=== PATIENT | male | born 1940 | race Caucasian/White ===

== ENCOUNTER 2017-10-19 14:15 | Inpatient (IN) | payer MEDICARE ==
[~2017-10-19] VITALS: Ht 170.2 cm; Wt 93.2 kg
--- NOTE | ~2017-10-19 | CN ---
PATIENT NAME:KEN RAMIREZ MEDICAL RECORD: [id number] : 36 LOCATION:[id number] ADMIT DATE: 10/19/17 ACCOUNT: [id number] CONSULTING PHYSICIAN: KATRINA CONSTANTINO MD REFERRING PHYSICIAN: SVETA CARTWRIGHT MD DATE OF CONSULTATION: 10/25/2017 IDENTIFYING DATA: The patient is 77 years old and he is admitted to the hospital on a voluntary basis. CHIEF COMPLAINT: None. HISTORY OF PRESENT ILLNESS: The patient has a history of schizophrenia, had some suicidal thoughts and was admitted to a [facility] unit in [place], [place]. He subsequently developed symptoms of cholecystitis with leukocytosis and was transferred here for evaluation. The patient was found to have splenomegaly and biliary dyskinesia. He is apparently medically stable at this point and I am being asked what should be done with him next. The patient continues to report that he is "not right in the head." He displays a depressed mood, but denies current thoughts of harming himself or others. ASSESSMENT: 1. Schizophrenia. 2. Major depression. PLAN: At this time, I would recommend the patient be transferred back to the [facility] facility from which he was accepted. He is clearly distressed psychologically and he was brought here before his treatment at the other facility was finished. Returning him there would be a reasonable step, although he currently denies psychotic symptoms and thoughts of self-harm. It would be up to the psychiatrist at [facility] to determine if he has completed his treatment and that he is appropriate to be transitioned to an outpatient setting. TRANSINT:[id number] Voice Confirmation ID: [id number] DOCUMENT ID: [id number] KATRINA CONSTANTINO MD at 1354 CC: [id number] DICTATION DATE: 10/25/17 1140 TECHNICAL SUPERVISOR: 10/25/17 1325 DIS IN 10/25/17 [address] [place] [address]
[2017-10-19] MEDS ORDERED: GLUCOTROL XL 1010 MG PO (17:59)
[2017-10-19] MEDS ORDERED: EFFEXOR75 MG PO (18:00)
[2017-10-19] MEDS ORDERED: ABILIFY10 MG PO (18:01)
[2017-10-19] MEDS ORDERED: REMERON45 MG PO (18:02)
[2017-10-19] MEDS ORDERED: ATROVENT 0.02%2.5 ML UPD (18:04)
[2017-10-19] MEDS ORDERED: PROVENTIL/2.5 MG/3 M INH (18:06)
[2017-10-19] MEDS ORDERED: CARAFATE1 G PO (18:08)
[2017-10-19] MEDS ORDERED: TRICOR145 MG PO (18:09)
[2017-10-19] MEDS ORDERED: PAMELOR 25 MG C25 MG PO (18:09)
[2017-10-19] MEDS ORDERED: NIASPAN500 MG PO (18:10)
[2017-10-19] MEDS ORDERED: ZESTRIL10 MG PO (18:11)
[2017-10-19] MEDS ORDERED: SALINE FLUSH10 ML IV (18:11)
[2017-10-19] MEDS ORDERED: IMODIUM2 MG PO (18:15)
[2017-10-19] MEDS ORDERED: GABAPENTIN100 MG PO (18:15)
[2017-10-19] MEDS ORDERED: ATIVAN1 MG (18:16)
[2017-10-19] MEDS ORDERED: OMEPRAZOLE40 MG PO (18:17)
[2017-10-19] MEDS ORDERED: SYNTHROID75 MCG PO (18:25)
[2017-10-19] MEDS ORDERED: NOVOLIN R100 U/ML (18:26)
[2017-10-19 18:49] VITALS: BP 156/63; BMI 30.9
[2017-10-19 20:48] VITALS: BP 152/71
[2017-10-19 23:59] VITALS: BP 122/59
[2017-10-20] VITALS (13 sets, daily range): BP systolic 120–141; BP diastolic 68–85; Ht 170.2 cm; Wt 93.2 kg
[2017-10-20 06:28] LABS: ANION GAP 10.7 mmol/L (8-16); BILIRUBIN - TOTAL 1.07 mg/dL (0.2-1.3); CALCIUM 8.6 mg/dL (8.5-10.1); CARBON DIOXIDE 27.6 mmol/L (21.0-32.0); CREATININE - SERUM 1.9 mg/dL (0.6-1.3); POTASSIUM - SERUM 4.3 mmol/L (3.5-5.1); PROTEIN - SERUM 5.8 g/dL (6.4-8.2)
[2017-10-20 07:02] LABS: HEMATOCRIT 30.8 % (42.0-54.0); HEMOGLOBIN 9.7 g/dL (13.5-17.5); MCHC 31.5 g/dL (31.0-37.0); PLATELET COUNT 127 10x3/uL (130-400); RBC 3.46 10x6/uL (4.20-6.10); RDW 20.2 % (11.5-14.5); WBC 13.9 10x3/uL (4.8-10.8)
[2017-10-20 07:50] LABS: EOSINOPHILS 8 % (0-7); LYMPHOCYTES 18 % (15-50); MONOCYTES 13 % (2-11); NEUTROPHILS 50 % (40-80)
[2017-10-20 07:51] LABS: PLATELET MORPHOLOGY GIANT PLTS PRESENT; POLYCHROMASIA 2+
[2017-10-20 07:52] LABS: PLATELET ESTIMATE NORMAL; TOXIC GRANULATION OCC
[2017-10-20 07:53] LABS: ACANTHOCYTES OCC
[2017-10-21] VITALS (18 sets, daily range): BP systolic 93–132; BP diastolic 53–83
[2017-10-21 05:57] LABS: APTT 39.7 SECONDS (22.8-39.4); INR 1.51 (0.85-1.17); PROTIME 17.8 SECONDS (11.6-15.0)
[2017-10-21 06:05] LABS: MCH 28.7 pg (26.0-34.0); MCHC 32.3 g/dL (31.0-37.0); MCV 89.1 fL (80.0-100.0); PLATELET COUNT 129 10x3/uL (130-400); RBC 3.48 10x6/uL (4.20-6.10); RDW 20.2 % (11.5-14.5); WBC 14.9 10x3/uL (4.8-10.8)
[2017-10-21 07:02] LABS: ANION GAP 11.3 mmol/L (8-16); BILIRUBIN - TOTAL 1.1 mg/dL (0.2-1.3); CALCIUM 8.4 mg/dL (8.5-10.1); CARBON DIOXIDE 26.7 mmol/L (21.0-32.0); CREATININE - SERUM 1.9 mg/dL (0.6-1.3); PROTEIN - SERUM 5.7 g/dL (6.4-8.2)
[2017-10-21 08:24] LABS: CRENATED CELLS 1+; EOSINOPHILS 9 % (0-7); LYMPHOCYTES 22 % (15-50); MONOCYTES 2 % (2-11); NEUTROPHILS 44 % (40-80); POLYCHROMASIA 2+
[2017-10-21 08:25] LABS: BURR CELLS 1+; SMUDGE CELLS 1+; TOXIC GRANULATION OCC; VACUOLES OCC
[2017-10-21 08:26] LABS: PLATELET ESTIMATE NORMAL; PLATELET MORPHOLOGY GIANT PLTS PRESENT
[2017-10-22] VITALS (28 sets, daily range): BP systolic 90–120; BP diastolic 48–82
[2017-10-22 04:34] LABS: HEMATOCRIT 28.9 % (42.0-54.0); HEMOGLOBIN 9.5 g/dL (13.5-17.5); LYMPHOCYTES 25.5 % (15-50); MCH 28.7 pg (26.0-34.0); MCHC 32.9 g/dL (31.0-37.0); MCV 87.3 fL (80.0-100.0); MEAN PLATELET VOLUME 10.2 fL (7.4-10.4); NEUTROPHILS 66.5 % (40-80); PLATELET COUNT 145 10x3/uL (130-400); RBC 3.31 10x6/uL (4.20-6.10); RDW 20.7 % (11.5-14.5); WBC 16.4 10x3/uL (4.8-10.8)
[2017-10-22 04:50] LABS: ALBUMIN 2.9 g/dL (3.4-5.0); ANION GAP 8.9 mmol/L (8-16); BILIRUBIN - TOTAL 1.02 mg/dL (0.2-1.3); CALCIUM 8.3 mg/dL (8.5-10.1); CARBON DIOXIDE 29.1 mmol/L (21.0-32.0); CREATININE - SERUM 1.9 mg/dL (0.6-1.3); PROTEIN - SERUM 5.6 g/dL (6.4-8.2)
[2017-10-23] VITALS (22 sets, daily range): BP systolic 92–134; BP diastolic 38–87
[2017-10-23 03:38] LABS: HEMATOCRIT 30.1 % (42.0-54.0); HEMOGLOBIN 9.7 g/dL (13.5-17.5); MCH 28.4 pg (26.0-34.0); MCHC 32.2 g/dL (31.0-37.0); MCV 88.3 fL (80.0-100.0); PLATELET COUNT 128 10x3/uL (130-400); RBC 3.41 10x6/uL (4.20-6.10); RDW 20.1 % (11.5-14.5); WBC 18.8 10x3/uL (4.8-10.8)
[2017-10-23 03:58] LABS: ALBUMIN 2.9 g/dL (3.4-5.0); ANION GAP 10.2 mmol/L (8-16); BILIRUBIN - TOTAL 0.93 mg/dL (0.2-1.3); CALCIUM 8.4 mg/dL (8.5-10.1); CREATININE - SERUM 2.2 mg/dL (0.6-1.3); POTASSIUM - SERUM 4.2 mmol/L (3.5-5.1); PROTEIN - SERUM 5.8 g/dL (6.4-8.2)
[2017-10-23 04:08] LABS: BASOPHILS 1 % (0-2); EOSINOPHILS 8 % (0-7); LYMPHOCYTES 15 % (15-50); MONOCYTES 13 % (2-11); NEUTROPHILS 46 % (40-80); TOXIC GRANULATION OCC
[2017-10-23 04:09] LABS: ACANTHOCYTES OCC; POLYCHROMASIA 2+
[2017-10-23 04:10] LABS: PLATELET ESTIMATE DECREASED; PLATELET MORPHOLOGY GIANT PLTS PRESENT
[2017-10-24] VITALS (23 sets, daily range): BP systolic 113–139; BP diastolic 62–91
[2017-10-24 02:40] LABS: HEMATOCRIT 29.1 % (42.0-54.0); HEMOGLOBIN 9.4 g/dL (13.5-17.5); MCH 28.5 pg (26.0-34.0); MCHC 32.3 g/dL (31.0-37.0); MCV 88.2 fL (80.0-100.0); PLATELET COUNT 141 10x3/uL (130-400); RDW 20.2 % (11.5-14.5); WBC 17.6 10x3/uL (4.8-10.8)
[2017-10-24 02:51] LABS: ALBUMIN 2.9 g/dL (3.4-5.0); BILIRUBIN - TOTAL 0.95 mg/dL (0.2-1.3); CALCIUM 8.4 mg/dL (8.5-10.1); CARBON DIOXIDE 29.1 mmol/L (21.0-32.0); CREATININE - SERUM 2.3 mg/dL (0.6-1.3); POTASSIUM - SERUM 4.1 mmol/L (3.5-5.1); PROTEIN - SERUM 5.7 g/dL (6.4-8.2)
[2017-10-24 03:09] LABS: BASOPHILS 4 % (0-2); EOSINOPHILS 5 % (0-7); LYMPHOCYTES 21 % (15-50); MONOCYTES 1 % (2-11); NEUTROPHILS 52 % (40-80); PLATELET ESTIMATE NORMAL; PLATELET MORPHOLOGY GIANT PLTS PRESENT
[2017-10-25] VITALS (17 sets, daily range): BP systolic 108–137; BP diastolic 56–77
== END 2017-10-25 20:36 | DRG 803 ==
LOC: D.MS 14:15 → D.ICU 16:44
PROVIDERS: General Practice; Internal Medicine Hematology & Oncology; Internal Medicine Nephrology; Radiology Diagnostic Radiology
PROC: 07DR3ZX Extraction of Iliac Bone Marrow, Percutaneous Approach, Diagnostic (ICD-10-PCS; 2017-10-22)
PROC: 0Q933ZX Drainage of Left Pelvic Bone, Percutaneous Approach, Diagnostic (ICD-10-PCS; principal; 2017-10-22 09:30)
DX: D72.829 Elevated white blood cell count, unspecified (principal); N17.9 Acute kidney failure, unspecified; R45.851 Suicidal ideations; N13.30 Unspecified hydronephrosis; R16.1 Splenomegaly, not elsewhere classified; K81.9 Cholecystitis, unspecified; I12.9 Hypertensive chronic kidney disease with stage 1 through stage 4 chronic kidney disease, or unspecified chronic kidney disease; E11.22 Type 2 diabetes mellitus with diabetic chronic kidney disease; N18.9 Chronic kidney disease, unspecified; F03.90 Unspecified dementia, unspecified severity, without behavioral disturbance, psychotic disturbance, mood disturbance, and anxiety; F20.9 Schizophrenia, unspecified; F31.9 Bipolar disorder, unspecified; E78.5 Hyperlipidemia, unspecified; E03.9 Hypothyroidism, unspecified; D64.9 Anemia, unspecified; D69.6 Thrombocytopenia, unspecified; N32.0 Bladder-neck obstruction; K82.8 Other specified diseases of gallbladder; M89.9 Disorder of bone, unspecified; N40.0 Benign prostatic hyperplasia without lower urinary tract symptoms